=== PATIENT | female | born 1950 | race Caucasian/White ===

== ENCOUNTER 2019-12-09 16:13 | Inpatient (IN) ==
[2019-12-09] MEDS ORDERED: ALBUTEROL/IPRATROPIUM 3 ML NEB RESP TX STA (16:44)
[2019-12-09] MEDS ORDERED: methylPREDNISolone SOD SUC 125 MG/2 ML VIAL IV STA (16:44)
[2019-12-09] MEDS ORDERED: MAGNESIUM SULF RIDER 2 GM in PREMIX 1 EACH IV STA (16:46)
[2019-12-09] MEDS ORDERED: LORazepam 2 MG/1 ML VIAL IV STA (17:11)
[2019-12-09 17:21] LABS: Basophils # 0.1 10*3/uL (0.0-0.2); Basophils % 0.8 % (0.0-0.8); Eosinophils % 0.1 % (0.00-10.9); Hematocrit 25.3 VOL% (35.7-47.0); Hemoglobin 6.6 GM/DL (12.0-16.0); Immature Granulocytes % 0.6 %; Immature Granulocytes Absolute 0.06 #; Lymphocytes # 1.1 10*3/uL (1.4-4.0); Lymphocytes % 11.8 % (21.3-54.2); Mean Corpuscular HGB Conc 26.1 GM/DL (32-36); Mean Corpuscular Volume 70.5 FL (87-102); Mean Platelet Volume 10.4 FL (9.6-12.0); Monocytes % 6.9 % (1.7-12.7); NRBC # 0.02 10*3/uL; Neutrophils % 79.8 % (38.7-73.9); Platelet Count 450 T/CUMM (130-400); Red Blood Count 3.59 MC/CUMM (3.8-5.5); Red Cell Distribution Width 19.5 % (9.3-17.3); White Blood Count 9.5 T/CUMM (4-12)
[2019-12-09 17:24] LABS: Albumin 3.6 G/DL (3.4-5.0); Bilirubin,Total 0.9 MG/DL (0.2-1.0); Calcium 9.2 MG/DL (8.5-10.1); Osmolality,Calculated 270.2 MOS/KG (273-304); Total Protein 8.5 G/DL (6.4-8.3)
[2019-12-09 17:25] LABS: Troponin I 0.325 NG/ML (0.00-0.045)
[2019-12-09 17:36] LABS: ABG Base Excess -4.1 MMOL/L (-2.5-2.5); ABG HCO3 20.9 MMOL/L (20-26); ABG Oxygen Saturation 98.3 % (95-100); ABG PCO2 48.9 MM HG (35-48); ABG PH 7.272 (7.35-7.45); ABG TCO2 21.7 MMOL/L (23-27)
[2019-12-09 17:40] LABS: INR 1.2; PT Patient Result 12.9 SECS (9.6-12.2); Partial Thromboplastin Time 23.3 SECS (20.8-36.0)
[2019-12-09] MEDS ORDERED: FUROSEMIDE 100 MG/10 ML VIAL IV STA (17:41)
[2019-12-09] MEDS ORDERED: cefTRIAXone 1,000 MG in SODIUM CHLORIDE 0.9% 100 ML IV STA (17:41)
[2019-12-09] MEDS ORDERED: FUROSEMIDE 20 MG/2 ML VIAL ONE (17:46)
[2019-12-09] MEDS ORDERED: SUCCINYLCHOLINE 200 MG/10 ML VIAL ONE (17:59)
[2019-12-09] MEDS ORDERED: ETOMIDATE 20 MG/10 ML VIAL IV ONE (18:12)
[2019-12-09] MEDS ORDERED: AZITHROMYCIN INJ 500 MG in SODIUM CHLORIDE 0.9% 250 ML IV STA (18:13)
[2019-12-09] MEDS ORDERED: ALBUTEROL 2.5 MG/3 ML NEB RESP TX PRN (18:15)
[2019-12-09] MEDS ORDERED: FAMOTIDINE 20 MG/2 ML VIAL IV SCH (18:30)
[2019-12-09 18:39] LABS: ABG Base Excess -4.1 MMOL/L (-2.5-2.5); ABG HCO3 20.3 MMOL/L (20-26); ABG Oxygen Saturation 24.5 % (95-100); ABG PCO2 63.2 MM HG (35-48); ABG TCO2 23.9 MMOL/L (23-27)
[2019-12-09 18:47] LABS: ABG PH 7.192 (7.35-7.45)
[2019-12-09 18:48] LABS: ABG PO2 25.3 MM HG (80-95)
[2019-12-09 19:55] LABS: Anisocytosis 4+; Hypochromasia 4+; Microcytosis 3+; Poikilocytosis 1+
[2019-12-09 20:09] LABS: Troponin I 0.381 NG/ML (0.00-0.045)
[2019-12-09] MEDS: fentaNYL INJ 1,250 MCG in SODIUM CHLORIDE 0.9% 225 ML IV PRN (20:10)
[2019-12-09 20:32] LABS: ABG Base Excess -2.8 MMOL/L (-2.5-2.5); ABG HCO3 22.1 MMOL/L (20-26); ABG Oxygen Saturation 95.1 % (95-100); ABG PCO2 38.6 MM HG (35-48); ABG PH 7.368 (7.35-7.45); ABG PO2 79.8 MM HG (80-95); ABG TCO2 21.4 MMOL/L (23-27); Allen Test Positive; Pt O2 Delivery Device Ventilator
[2019-12-09] MEDS ORDERED: DOPamine 800 MG/250 ML PREMIX IV PRN (21:08)
[2019-12-09] MEDS: methylPREDNISolone SOD SUC 125 MG/2 ML VIAL IV SCH (23:11)
[2019-12-10] MEDS: NOREPINEPHRINE 8 MG in SODIUM CHLORIDE 0.9% 242 ML IV PRN (00:22)
[2019-12-10] MEDS: methylPREDNISolone SOD SUC 125 MG/2 ML VIAL IV SCH ×2 (00:55→09:23)
[2019-12-10 03:37] LABS: ABG Base Excess -2.1 MMOL/L (-2.5-2.5); ABG HCO3 22.7 MMOL/L (20-26); ABG Oxygen Saturation 98.9 % (95-100); ABG PCO2 29.3 MM HG (35-48); ABG PH 7.462 (7.35-7.45); ABG TCO2 19.3 MMOL/L (23-27); Allen Test Positive; Pt O2 Delivery Device Ventilator
[2019-12-10 06:20] LABS: Basophils % 0.1 % (0.0-0.8); Hematocrit 32.6 VOL% (35.7-47.0); Immature Granulocytes % 0.5 %; Immature Granulocytes Absolute 0.05 #; Lymphocytes # 0.5 10*3/uL (1.4-4.0); Lymphocytes % 5.2 % (21.3-54.2); Mean Corpuscular HGB Conc 30.1 GM/DL (32-36); Mean Corpuscular Volume 72.3 FL (87-102); Mean Platelet Volume 10.5 FL (9.6-12.0); Monocytes % 1.5 % (1.7-12.7); NRBC # 0.08 10*3/uL; Neutrophils % 92.7 % (38.7-73.9); Platelet Count 407 T/CUMM (130-400); Red Cell Distribution Width 20.8 % (9.3-17.3); White Blood Count 9.4 T/CUMM (4-12)
[2019-12-10 06:33] LABS: Red Blood Count 4.51 MC/CUMM (3.8-5.5)
[2019-12-10 06:34] LABS: Hemoglobin 9.8 GM/DL (12.0-16.0)
[2019-12-10 06:40] LABS: Alanine Aminotransferase 13 U/L (13-56); Alkaline Phosphatase 135 U/L (45-117); Aspartate Amino Transferase 22 U/L (0-37); Blood Urea Nitrogen 15 MG/DL (7-18); Estimated Glom Filtration Rate 74 ML/MIN; Glucose 184 MG/DL (74-106); Osmolality,Calculated 278.8 MOS/KG (273-304); Total Protein 7.3 G/DL (6.4-8.3)
[2019-12-10 06:42] LABS: Troponin I 0.391 NG/ML (0.00-0.045)
[2019-12-10] MEDS: LEVOFLOXACIN INJ 750 MG in PREMIX 1 EACH IV SCH (07:22)
[2019-12-10] MEDS: FUROSEMIDE 20 MG/2 ML VIAL IV PRN ×2 (07:22→21:51)
[2019-12-10 07:47] LABS: Hypochromasia 2+; Lymphocytes 4 % (20-55); Metamyelocytes 1 %; Nucleated Red Blood Cells 1 (0-5); Segmented Neutrophils 94 % (50-85); Total Cells Counted 100
[2019-12-10 07:48] LABS: Microcytosis 2+
[2019-12-10] MEDS: fentaNYL INJ 1,250 MCG in SODIUM CHLORIDE 0.9% 225 ML IV PRN ×2 (08:20→20:10)
[2019-12-10] MEDS: FERROUS SULFATE 300 MG/5 ML UDCUP PO SCH ×3 (09:23→21:51)
[2019-12-10 10:44] LABS: % Iron Saturation 23.8 % (18-50); Ferritin 13.1 ng/ml (8-252)
[2019-12-10] MEDS ORDERED: BICILLIN LA 1,200,000 UNIT/2 ML SYRINGE IM ONE (13:00)
[2019-12-10 14:04] LABS: Apearance,Urine CLEAR (Clear); Bilirubin,Urine Negative (Negative); Blood, Urine Small mg/dL (Negative); Glucose,Urine (UA) Negative (Negative); Hyaline Casts,Urine 4 /LPF (0-3); Ketones,Urine Negative (Negative); Nitrite,Urine Negative (Negative); Protein,Urine Negative; RBC,Urine 27 /HPF (0-4); Squamous Epithelial Cell,Urine Occasional /HPF (0-10); Urine Color Yellow (Yellow); Urine Specific Gravity 1.016 (1.001-1.035); Urine Urobilinogen < 2.0 EU/DL (0.2-1.0); WBC,Urine 15 /HPF (0-6)
[2019-12-10] MEDS ORDERED: SODIUM CHLORIDE 0.9% 1,000 ML IV ONE (16:00)
[2019-12-10 17:02] LABS: Calcium 7.5 MG/DL (8.5-10.1); Osmolality,Calculated 282.5 MOS/KG (273-304)
[2019-12-10] MEDS: SODIUM CHLORIDE 0.9% 1,000 ML IV SCH (17:40)
[2019-12-11] MEDS: SODIUM CHLORIDE 0.9% 1,000 ML IV SCH (03:40)
[2019-12-11 04:01] LABS: ABG Base Excess -3.6 MMOL/L (-2.5-2.5); ABG HCO3 21.3 MMOL/L (20-26); ABG Oxygen Saturation 95.7 % (95-100); ABG PCO2 46.1 MM HG (35-48); ABG PH 7.302 (7.35-7.45); ABG PO2 81.7 MM HG (80-95)
[2019-12-11 05:20] LABS: Albumin 2.3 G/DL (3.4-5.0); Calcium 6.1 MG/DL (8.5-10.1); Osmolality,Calculated 277.5 MOS/KG (273-304); Thyroid Stimulating Hormone 0.808 uIU/ml (0.358-3.74); Total Protein 6.7 G/DL (6.4-8.3)
[2019-12-11 05:33] LABS: Basophils % 0.1 % (0.0-0.8); Eosinophils % 0.1 % (0.00-10.9); Hematocrit 32.3 VOL% (35.7-47.0); Hemoglobin 9.6 GM/DL (12.0-16.0); Immature Granulocytes % 0.9 %; Immature Granulocytes Absolute 0.16 #; Lymphocytes # 1.3 10*3/uL (1.4-4.0); Lymphocytes % 7.4 % (21.3-54.2); Mean Corpuscular HGB Conc 29.7 GM/DL (32-36); Mean Corpuscular Volume 75.6 FL (87-102); Mean Platelet Volume 10.8 FL (9.6-12.0); Monocytes % 11.8 % (1.7-12.7); NRBC # 0.16 10*3/uL; Neutrophils % 79.7 % (38.7-73.9); Platelet Count 373 T/CUMM (130-400); Red Blood Count 4.27 MC/CUMM (3.8-5.5); Red Cell Distribution Width 20.9 % (9.3-17.3); White Blood Count 17.4 T/CUMM (4-12)
[2019-12-11 05:44] LABS: Hypochromasia 1+; Microcytosis Slight; Platelet Estimate Adequate
[2019-12-11] MEDS: LEVOTHYROXINE 50 MCG TABLET PO SCH (06:34)
[2019-12-11] MEDS: LEVOFLOXACIN INJ 750 MG in PREMIX 1 EACH IV SCH (06:34)
[2019-12-11] MEDS ORDERED: MAGNESIUM SULF RIDER 4 GM in PREMIX 1 EACH IV PRN (07:30)
[2019-12-11] MEDS: FUROSEMIDE 40 MG/4 ML VIAL IV SCH ×2 (08:31→15:42)
[2019-12-11] MEDS: VANCOMYCIN INJ 750 MG in SODIUM CHLORIDE 0.9% 250 ML IV SCH ×2 (08:32→20:42)
[2019-12-11] MEDS: FERROUS SULFATE 300 MG/5 ML UDCUP PO SCH ×3 (08:32→20:43)
[2019-12-11] MEDS: MAGNESIUM SULF RIDER 2 GM in PREMIX 1 EACH IV PRN (08:33)
[2019-12-11] MEDS: fentaNYL INJ 1,250 MCG in SODIUM CHLORIDE 0.9% 225 ML IV PRN ×2 (09:09→21:34)
[2019-12-11] MEDS: NOREPINEPHRINE 8 MG in SODIUM CHLORIDE 0.9% 242 ML IV PRN (22:31)
[2019-12-12 04:27] LABS: ABG HCO3 26.1 MMOL/L (20-26); ABG Oxygen Saturation 97.7 % (95-100); ABG PCO2 37.4 MM HG (35-48); ABG PH 7.448 (7.35-7.45); ABG PO2 88.3 MM HG (80-95); ABG TCO2 23.6 MMOL/L (23-27); Allen Test Positive; Pt O2 Delivery Device Ventilator
[2019-12-12 05:21] LABS: Calcium 7.2 MG/DL (8.5-10.1); Osmolality,Calculated 285.8 MOS/KG (273-304)
[2019-12-12] MEDS: POTASSIUM CHLORIDE RIDER 10 MEQ in PREMIX 1 EACH IV PRN ×6 (05:42→18:26)
[2019-12-12] MEDS: LEVOTHYROXINE 50 MCG TABLET PO SCH (05:47)
[2019-12-12] MEDS: LEVOFLOXACIN INJ 750 MG in PREMIX 1 EACH IV SCH (06:26)
[2019-12-12] MEDS: FUROSEMIDE 40 MG/4 ML VIAL IV SCH ×2 (07:39→15:46)
[2019-12-12] MEDS: VANCOMYCIN INJ 750 MG in SODIUM CHLORIDE 0.9% 250 ML IV SCH ×2 (07:39→20:25)
[2019-12-12] MEDS: FERROUS SULFATE 300 MG/5 ML UDCUP PO SCH ×3 (09:21→20:25)
[2019-12-12] MEDS: fentaNYL INJ 1,250 MCG in SODIUM CHLORIDE 0.9% 225 ML IV PRN (10:39)
[2019-12-13] MEDS: fentaNYL INJ 1,250 MCG in SODIUM CHLORIDE 0.9% 225 ML IV PRN ×2 (02:29→20:38)
[2019-12-13 03:57] LABS: Allen Test Positive; Pt O2 Delivery Device Ventilator
[2019-12-13 04:00] LABS: ABG Base Excess 5.2 MMOL/L (-2.5-2.5); ABG Oxygen Saturation 92.2 % (95-100); ABG PCO2 44.7 MM HG (35-48); ABG PH 7.435 (7.35-7.45); ABG PO2 62.7 MM HG (80-95); ABG TCO2 27.4 MMOL/L (23-27)
[2019-12-13 06:05] LABS: Prealbumin 11.8 MG/DL (20-40)
[2019-12-13 06:08] LABS: Calcium 7.2 MG/DL (8.5-10.1); Osmolality,Calculated 271.2 MOS/KG (273-304)
[2019-12-13] MEDS: LEVOFLOXACIN INJ 750 MG in PREMIX 1 EACH IV SCH (06:27)
[2019-12-13] MEDS: LEVOTHYROXINE 50 MCG TABLET PO SCH (06:28)
[2019-12-13 06:40] LABS: Basophils % 0.2 % (0.0-0.8); Eosinophils # 0.1 10*3/uL (0.0-0.87); Eosinophils % 0.6 % (0.00-10.9); Hematocrit 35.6 VOL% (35.7-47.0); Immature Granulocytes % 0.6 %; Lymphocytes % 18.4 % (21.3-54.2); Mean Corpuscular HGB Conc 28.4 GM/DL (32-36); Mean Corpuscular Volume 76.6 FL (87-102); Mean Platelet Volume 10.8 FL (9.6-12.0); Monocytes % 7.9 % (1.7-12.7); Neutrophils % 72.3 % (38.7-73.9); Platelet Count 215 T/CUMM (130-400); Red Blood Count 4.65 MC/CUMM (3.8-5.5); Red Cell Distribution Width 23.8 % (9.3-17.3); White Blood Count 16.3 T/CUMM (4-12)
[2019-12-13 06:42] LABS: Hemoglobin 10.1 GM/DL (12.0-16.0)
[2019-12-13 07:00] LABS: Hypochromasia 1+; Microcytosis Slight; Platelet Estimate Adequate
[2019-12-13] MEDS: FUROSEMIDE 40 MG/4 ML VIAL IV SCH ×2 (08:30→15:30)
[2019-12-13] MEDS: POTASSIUM CHLORIDE RIDER 10 MEQ in PREMIX 1 EACH IV PRN (08:30)
[2019-12-13] MEDS: FERROUS SULFATE 300 MG/5 ML UDCUP PO SCH ×3 (08:55→20:40)
[2019-12-13] MEDS: VANCOMYCIN INJ 750 MG in SODIUM CHLORIDE 0.9% 250 ML IV SCH ×2 (10:20→20:39)
[2019-12-13] MEDS: NOREPINEPHRINE 8 MG in SODIUM CHLORIDE 0.9% 242 ML IV PRN (10:31)
[2019-12-13] MEDS: dilTIAZem Drip 125 MG/125 ML PREMIX IV SCH (18:00)
[2019-12-13] MEDS ORDERED: DILTIAZEM 50 MG/10 ML VIAL IV ONE (18:00)
[2019-12-13] MEDS ORDERED: DIGOXIN 0.5 MG/2 ML AMP ONE (18:04)
[2019-12-13] MEDS ORDERED: DILTIAZEM 25 MG/5 ML VIAL IV ONE (18:05)
[2019-12-13] MEDS: DIGOXIN 0.5 MG/2 ML AMP IV SCH ×2 (19:06→23:30)
[2019-12-14 03:03] LABS: Basophils % 0.2 % (0.0-0.8); Eosinophils # 0.2 10*3/uL (0.0-0.87); Eosinophils % 0.9 % (0.00-10.9); Hematocrit 37.6 VOL% (35.7-47.0); Hemoglobin 10.9 GM/DL (12.0-16.0); Immature Granulocytes % 0.6 %; Immature Granulocytes Absolute 0.11 #; Lymphocytes # 3.3 10*3/uL (1.4-4.0); Lymphocytes % 17.5 % (21.3-54.2); Mean Platelet Volume 10.8 FL (9.6-12.0); Monocytes % 9.2 % (1.7-12.7); Neutrophils % 71.6 % (38.7-73.9); Platelet Count 205 T/CUMM (130-400); Red Blood Count 5.01 MC/CUMM (3.8-5.5); Red Cell Distribution Width 24.6 % (9.3-17.3); White Blood Count 18.8 T/CUMM (4-12)
[2019-12-14 03:08] LABS: Albumin 2.4 G/DL (3.4-5.0); Bilirubin,Total 1.2 MG/DL (0.2-1.0); Calcium 8.5 MG/DL (8.5-10.1); Osmolality,Calculated 277.7 MOS/KG (273-304); Total Protein 6.5 G/DL (6.4-8.3)
[2019-12-14 03:09] LABS: Hypochromasia 1+; Platelet Estimate Normal; Polychromasia Few
[2019-12-14] MEDS: DIGOXIN 0.5 MG/2 ML AMP IV SCH (05:53)
[2019-12-14] MEDS: LEVOTHYROXINE 50 MCG TABLET PO SCH (06:24)
[2019-12-14] MEDS: POTASSIUM CHLORIDE RIDER 10 MEQ in PREMIX 1 EACH IV PRN ×2 (06:24→07:25)
[2019-12-14] MEDS: FUROSEMIDE 40 MG/4 ML VIAL IV SCH ×2 (08:31→16:50)
[2019-12-14] MEDS: FERROUS SULFATE 300 MG/5 ML UDCUP PO SCH ×3 (08:31→21:22)
[2019-12-14] MEDS: ENOXAPARIN 60 MG/0.6 ML SYRINGE SUBCUT SCH ×2 (08:32→21:23)
[2019-12-14] MEDS: VANCOMYCIN INJ 750 MG in SODIUM CHLORIDE 0.9% 250 ML IV SCH ×2 (08:33→21:23)
[2019-12-14] MEDS: fentaNYL INJ 1,250 MCG in SODIUM CHLORIDE 0.9% 225 ML IV PRN (15:01)
[2019-12-14] MEDS: dilTIAZem Drip 125 MG/125 ML PREMIX IV SCH (18:45)
[2019-12-15 04:09] LABS: ABG HCO3 31.7 MMOL/L (20-26); ABG Oxygen Saturation 93.6 % (95-100); ABG PCO2 49.5 MM HG (35-48); ABG PH 7.438 (7.35-7.45); ABG PO2 68.3 MM HG (80-95); ABG TCO2 30.5 MMOL/L (23-27); Allen Test Positive; Pt O2 Delivery Device Ventilator
[2019-12-15] MEDS ORDERED: FUROSEMIDE 100 MG/10 ML VIAL IV ONE (05:23)
[2019-12-15] MEDS: LEVOTHYROXINE 50 MCG TABLET PO SCH (06:15)
[2019-12-15] MEDS: VANCOMYCIN INJ 750 MG in SODIUM CHLORIDE 0.9% 250 ML IV SCH ×2 (08:46→20:26)
[2019-12-15] MEDS: FUROSEMIDE 40 MG/4 ML VIAL IV SCH ×2 (08:46→16:12)
[2019-12-15] MEDS: ENOXAPARIN 60 MG/0.6 ML SYRINGE SUBCUT SCH ×2 (08:47→20:27)
[2019-12-15] MEDS: FERROUS SULFATE 300 MG/5 ML UDCUP PO SCH ×3 (08:47→20:27)
[2019-12-15] MEDS: DILTIAZEM 60 MG TABLET PO SCH ×3 (08:53→22:05)
[2019-12-15] MEDS: NOREPINEPHRINE 8 MG in SODIUM CHLORIDE 0.9% 242 ML IV PRN (14:27)
[2019-12-15] MEDS: fentaNYL INJ 1,250 MCG in SODIUM CHLORIDE 0.9% 225 ML IV PRN (14:28)
[2019-12-15] MEDS: dilTIAZem Drip 125 MG/125 ML PREMIX IV SCH (18:46)
[2019-12-16] MEDS: NOREPINEPHRINE 8 MG in SODIUM CHLORIDE 0.9% 242 ML IV PRN ×3 (02:00→18:04)
[2019-12-16 03:10] LABS: Calcium 9.5 MG/DL (8.5-10.1)
[2019-12-16] MEDS: MAGNESIUM SULF RIDER 2 GM in PREMIX 1 EACH IV PRN ×2 (03:27→16:42)
[2019-12-16] MEDS: POTASSIUM CHLORIDE RIDER 10 MEQ in PREMIX 1 EACH IV PRN ×7 (03:36→19:10)
[2019-12-16 04:43] LABS: ABG Base Excess 10.7 MMOL/L (-2.5-2.5); ABG HCO3 37.4 MMOL/L (20-26); ABG Oxygen Saturation 95.9 % (95-100); ABG PCO2 61.8 MM HG (35-48); ABG PO2 85.8 MM HG (80-95); ABG TCO2 39.3 MMOL/L (23-27); Allen Test Positive; Pt O2 Delivery Device Ventilator
[2019-12-16] MEDS: LEVOTHYROXINE 50 MCG TABLET PO SCH (07:05)
[2019-12-16] MEDS: FUROSEMIDE 40 MG/4 ML VIAL IV SCH ×2 (08:38→16:42)
[2019-12-16] MEDS: FERROUS SULFATE 300 MG/5 ML UDCUP PO SCH ×3 (08:39→20:29)
[2019-12-16] MEDS: ENOXAPARIN 60 MG/0.6 ML SYRINGE SUBCUT SCH ×2 (08:40→20:29)
[2019-12-16] MEDS: DILTIAZEM 60 MG TABLET PO SCH ×3 (08:41→21:30)
[2019-12-16] MEDS ORDERED: LACTULOSE 20 GM/30 ML UDCUP PO ONE (08:58)
[2019-12-16] MEDS: VANCOMYCIN INJ 750 MG in SODIUM CHLORIDE 0.9% 250 ML IV SCH (10:03)
[2019-12-16] MEDS ORDERED: NOREPINEPHRINE 4 MG/4 ML VIAL IV ONE (10:10)
[2019-12-16] MEDS: fentaNYL INJ 1,250 MCG in SODIUM CHLORIDE 0.9% 225 ML IV PRN (14:05)
[2019-12-16] MEDS: dilTIAZem Drip 125 MG/125 ML PREMIX IV SCH (18:33)
[2019-12-16] MEDS: VANCOMYCIN INJ 1,000 MG in SODIUM CHLORIDE 0.9% 250 ML IV SCH (21:23)
[2019-12-17] MEDS: NOREPINEPHRINE 8 MG in SODIUM CHLORIDE 0.9% 242 ML IV PRN ×5 (00:35→21:48)
[2019-12-17 04:21] LABS: ABG Base Excess 10.5 MMOL/L (-2.5-2.5); ABG HCO3 34.2 MMOL/L (20-26); ABG PCO2 52.8 MM HG (35-48); ABG PH 7.447 (7.35-7.45); ABG PO2 78.2 MM HG (80-95); ABG TCO2 32.7 MMOL/L (23-27); Allen Test Positive; Pt O2 Delivery Device Ventilator
[2019-12-17 06:09] LABS: Calcium 9.4 MG/DL (8.5-10.1); Osmolality,Calculated 272.2 MOS/KG (273-304)
[2019-12-17 06:59] LABS: Basophils # 0.1 10*3/uL (0.0-0.2); Basophils % 0.6 % (0.0-0.8); Eosinophils # 0.3 10*3/uL (0.0-0.87); Eosinophils % 1.4 % (0.00-10.9); Hematocrit 39.2 VOL% (35.7-47.0); Hemoglobin 10.9 GM/DL (12.0-16.0); Immature Granulocytes Absolute 0.18 #; Lymphocytes # 2.5 10*3/uL (1.4-4.0); Lymphocytes % 13.4 % (21.3-54.2); Mean Corpuscular HGB Conc 27.8 GM/DL (32-36); Mean Corpuscular Volume 78.1 FL (87-102); Monocytes % 12.1 % (1.7-12.7); Neutrophils % 71.5 % (38.7-73.9); Platelet Count 275 T/CUMM (130-400); Red Blood Count 5.02 MC/CUMM (3.8-5.5); Red Cell Distribution Width 26.4 % (9.3-17.3); White Blood Count 18.7 T/CUMM (4-12)
[2019-12-17] MEDS: LEVOTHYROXINE 50 MCG TABLET PO SCH (07:47)
[2019-12-17 09:08] LABS: Hypochromasia 2+; Microcytosis 2+; Ovalocytes Slight; Polychromasia Slight
[2019-12-17 09:09] LABS: Platelet Estimate Normal
[2019-12-17] MEDS: FUROSEMIDE 40 MG/4 ML VIAL IV SCH ×2 (10:15→16:24)
[2019-12-17] MEDS: DILTIAZEM 60 MG TABLET PO SCH ×3 (10:16→21:29)
[2019-12-17] MEDS: LACTULOSE 20 GM/30 ML UDCUP PO SCH (10:17)
[2019-12-17] MEDS: ENOXAPARIN 60 MG/0.6 ML SYRINGE SUBCUT SCH ×2 (10:17→22:04)
[2019-12-17] MEDS: FERROUS SULFATE 300 MG/5 ML UDCUP PO SCH ×3 (10:17→22:04)
[2019-12-17] MEDS: VANCOMYCIN INJ 1,000 MG in SODIUM CHLORIDE 0.9% 250 ML IV SCH ×2 (10:18→22:04)
[2019-12-17] MEDS: POTASSIUM CHLORIDE RIDER 10 MEQ in PREMIX 1 EACH IV PRN ×2 (10:19→11:48)
[2019-12-17] MEDS ORDERED: NOREPINEPHRINE 4 MG/4 ML VIAL IV ONE (17:55)
[2019-12-17] MEDS: dilTIAZem Drip 125 MG/125 ML PREMIX IV SCH (18:20)
[2019-12-17] MEDS ORDERED: DIGOXIN 0.5 MG/2 ML AMP IV ONE (18:44)
[2019-12-17] MEDS ORDERED: PHENYLEPHRINE DRIP 40 MG/250 ML PREMIX IV ONE (19:32)
[2019-12-17] MEDS: PHENYLEPHRINE DRIP 40 MG/250 ML PREMIX IV PRN ×2 (19:35→23:26)
[2019-12-17] MEDS ORDERED: SODIUM CHLORIDE 0.9% 250 ML IV ONE (19:42)
[2019-12-17] MEDS ORDERED: AMIODARONE 150 MG/3 ML VIAL ONE (20:21)
[2019-12-17] MEDS ORDERED: AMIODARONE 450 MG/9 ML VIAL IV ONE (20:21)
[2019-12-17] MEDS ORDERED: AMIODARONE INJ 150 MG in DEXTROSE 5% 100 ML IV ONE (20:27)
[2019-12-17] MEDS ORDERED: AMIODARONE INJ 450 MG in DEXTROSE 5% 241 ML IV SCH (20:30)
[2019-12-17 20:33] LABS: Blood Urea Nitrogen 12 MG/DL (7-18); Calcium 9.3 MG/DL (8.5-10.1); Estimated Glom Filtration Rate 79 ML/MIN; Glucose 233 MG/DL (74-106)
[2019-12-17 20:36] LABS: Troponin I 0.141 NG/ML (0.00-0.045)
[2019-12-17] MEDS: fentaNYL INJ 1,250 MCG in SODIUM CHLORIDE 0.9% 225 ML IV PRN (20:55)
[2019-12-17] MEDS: AMIODARONE INJ 450 MG in DEXTROSE 5% 241 ML IV SCH (21:22)
[2019-12-18] MEDS: MAGNESIUM SULF RIDER 2 GM in PREMIX 1 EACH IV PRN (01:07)
[2019-12-18] MEDS: dilTIAZem Drip 125 MG/125 ML PREMIX IV SCH ×2 (01:10→18:55)
[2019-12-18] MEDS ORDERED: AMIODARONE INJ 450 MG in DEXTROSE 5% 241 ML IV SCH (02:30)
[2019-12-18] MEDS: NOREPINEPHRINE 8 MG in SODIUM CHLORIDE 0.9% 242 ML IV PRN ×4 (03:20→20:46)
[2019-12-18] MEDS: PHENYLEPHRINE DRIP 40 MG/250 ML PREMIX IV PRN ×6 (03:21→21:41)
[2019-12-18 04:38] LABS: ABG Base Excess 7.5 MMOL/L (-2.5-2.5); ABG HCO3 31.2 MMOL/L (20-26); ABG Oxygen Saturation 94.2 % (95-100); ABG PCO2 49.1 MM HG (35-48); ABG PH 7.435 (7.35-7.45); ABG PO2 71.2 MM HG (80-95); ABG TCO2 29.5 MMOL/L (23-27); Allen Test Positive; Pt O2 Delivery Device Ventilator
[2019-12-18] MEDS: LEVOTHYROXINE 50 MCG TABLET PO SCH (06:19)
[2019-12-18 06:21] LABS: Osmolality,Calculated 281.8 MOS/KG (273-304)
[2019-12-18] MEDS ORDERED: DOCUSATE SODIUM 100 MG/10 ML UDCUP PO PRN (08:02)
[2019-12-18] MEDS ORDERED: BISACODYL 10 MG SUPP RECTAL PRN (08:02)
[2019-12-18] MEDS ORDERED: FUROSEMIDE 40 MG/4 ML VIAL IV ONE (08:12)
[2019-12-18 09:06] LABS: Basophils # 0.1 10*3/uL (0.0-0.2); Basophils % 0.7 % (0.0-0.8)
[2019-12-18 09:27] LABS: Eosinophils # 0.1 10*3/uL (0.0-0.87); Eosinophils % 0.4 % (0.00-10.9); Hematocrit 41.7 VOL% (35.7-47.0); Immature Granulocytes % 1.1 %; Immature Granulocytes Absolute 0.22 #; Lymphocytes # 2.5 10*3/uL (1.4-4.0); Lymphocytes % 13.1 % (21.3-54.2); Mean Corpuscular HGB Conc 28.5 GM/DL (32-36); Mean Corpuscular Volume 77.8 FL (87-102); Mean Platelet Volume 11.3 FL (9.6-12.0); Monocytes % 12.6 % (1.7-12.7); NRBC # 0.02 10*3/uL; Neutrophils % 72.1 % (38.7-73.9); Platelet Count 389 T/CUMM (130-400); Red Blood Count 5.36 MC/CUMM (3.8-5.5); Red Cell Distribution Width 27.5 % (9.3-17.3); White Blood Count 19.3 T/CUMM (4-12)
[2019-12-18 09:28] LABS: Hemoglobin 11.9 GM/DL (12.0-16.0)
[2019-12-18] MEDS: FUROSEMIDE 40 MG/4 ML VIAL IV SCH ×2 (09:29→16:01)
[2019-12-18] MEDS: FERROUS SULFATE 300 MG/5 ML UDCUP PO SCH ×3 (09:36→22:20)
[2019-12-18] MEDS: ASPIRIN CHEW 81 MG TABLET PO SCH (09:36)
[2019-12-18] MEDS: ENOXAPARIN 60 MG/0.6 ML SYRINGE SUBCUT SCH ×2 (09:36→22:20)
[2019-12-18] MEDS: LACTULOSE 20 GM/30 ML UDCUP PO SCH (09:36)
[2019-12-18 09:41] LABS: Platelet Estimate Adequate
[2019-12-18 09:42] LABS: Microcytosis Slight
[2019-12-18] MEDS ORDERED: GLUCAGON 1 MG VIAL IM PRN (09:55)
[2019-12-18] MEDS: VANCOMYCIN INJ 1,000 MG in SODIUM CHLORIDE 0.9% 250 ML IV SCH ×2 (11:20→22:20)
[2019-12-18] MEDS: AMIODARONE 200 MG TABLET PO SCH ×2 (12:27→22:20)
[2019-12-18] MEDS: INSULIN REGULAR 100 UNIT/ML SUBCUT SCH ×2 (12:27→17:47)
[2019-12-18] MEDS: POTASSIUM CHLORIDE RIDER 10 MEQ in PREMIX 1 EACH IV PRN ×2 (16:20→17:47)
[2019-12-18] MEDS: fentaNYL INJ 1,250 MCG in SODIUM CHLORIDE 0.9% 225 ML IV PRN (19:01)
[2019-12-19] MEDS: INSULIN REGULAR 100 UNIT/ML SUBCUT SCH ×4 (00:03→18:27)
[2019-12-19] MEDS: PHENYLEPHRINE DRIP 40 MG/250 ML PREMIX IV PRN ×5 (02:32→22:52)
[2019-12-19 03:01] LABS: ABG Base Excess 5.8 MMOL/L (-2.5-2.5); ABG HCO3 29.6 MMOL/L (20-26); ABG PCO2 47.2 MM HG (35-48); ABG PH 7.427 (7.35-7.45); ABG PO2 89.4 MM HG (80-95); ABG TCO2 27.7 MMOL/L (23-27); Allen Test Positive; Pt O2 Delivery Device Ventilator
[2019-12-19] MEDS: NOREPINEPHRINE 8 MG in SODIUM CHLORIDE 0.9% 242 ML IV PRN ×3 (03:46→18:49)
[2019-12-19] MEDS: LEVOTHYROXINE 50 MCG TABLET PO SCH (05:59)
[2019-12-19 06:29] LABS: Calcium 7.6 MG/DL (8.5-10.1); Osmolality,Calculated 282.4 MOS/KG (273-304)
[2019-12-19 06:39] LABS: Basophils # 0.1 10*3/uL (0.0-0.2); Basophils % 0.7 % (0.0-0.8); Eosinophils # 0.2 10*3/uL (0.0-0.87); Eosinophils % 0.9 % (0.00-10.9); Hematocrit 31.3 VOL% (35.7-47.0); Hemoglobin 8.8 GM/DL (12.0-16.0); Immature Granulocytes % 1.1 %; Immature Granulocytes Absolute 0.18 #; Lymphocytes # 2.1 10*3/uL (1.4-4.0); Lymphocytes % 12.7 % (21.3-54.2); Mean Corpuscular HGB Conc 28.1 GM/DL (32-36); Mean Corpuscular Volume 79.6 FL (87-102); Mean Platelet Volume 11.3 FL (9.6-12.0); Monocytes % 11.5 % (1.7-12.7); Neutrophils % 73.1 % (38.7-73.9); Platelet Count 336 T/CUMM (130-400); Red Blood Count 3.93 MC/CUMM (3.8-5.5); Red Cell Distribution Width 26.7 % (9.3-17.3); White Blood Count 16.3 T/CUMM (4-12)
[2019-12-19 06:41] LABS: Hypochromasia 2+
[2019-12-19 06:42] LABS: Microcytosis 2+; Platelet Estimate Normal; Polychromasia Slight
[2019-12-19] MEDS: ENOXAPARIN 60 MG/0.6 ML SYRINGE SUBCUT SCH ×2 (08:37→20:58)
[2019-12-19] MEDS: MAGNESIUM SULF RIDER 2 GM in PREMIX 1 EACH IV PRN (08:37)
[2019-12-19] MEDS: FERROUS SULFATE 300 MG/5 ML UDCUP PO SCH ×3 (08:37→20:58)
[2019-12-19] MEDS: FUROSEMIDE 40 MG/4 ML VIAL IV SCH ×2 (08:37→15:41)
[2019-12-19] MEDS: AMIODARONE 200 MG TABLET PO SCH ×2 (08:38→20:58)
[2019-12-19] MEDS: methylPREDNISolone SOD SUC 40 MG/1 ML VIAL IV SCH ×2 (08:38→15:41)
[2019-12-19] MEDS: LACTULOSE 20 GM/30 ML UDCUP PO SCH (08:38)
[2019-12-19] MEDS: ASPIRIN CHEW 81 MG TABLET PO SCH (08:39)
[2019-12-19] MEDS: VANCOMYCIN INJ 1,000 MG in SODIUM CHLORIDE 0.9% 250 ML IV SCH ×2 (10:43→21:01)
[2019-12-19] MEDS: fentaNYL INJ 1,250 MCG in SODIUM CHLORIDE 0.9% 225 ML IV PRN (15:41)
[2019-12-19] MEDS: dilTIAZem Drip 125 MG/125 ML PREMIX IV SCH (18:28)
[2019-12-20] MEDS: methylPREDNISolone SOD SUC 40 MG/1 ML VIAL IV SCH ×3 (00:38→15:55)
[2019-12-20] MEDS: INSULIN REGULAR 100 UNIT/ML SUBCUT SCH ×4 (00:38→18:36)
[2019-12-20] MEDS: NOREPINEPHRINE 8 MG in SODIUM CHLORIDE 0.9% 242 ML IV PRN ×4 (01:30→17:58)
[2019-12-20] MEDS: ACETAMINOPHEN 325 MG TABLET PO PRN ×3 (02:37→20:05)
[2019-12-20] MEDS: PHENYLEPHRINE DRIP 40 MG/250 ML PREMIX IV PRN ×5 (02:39→20:15)
[2019-12-20 03:25] LABS: ABG Base Excess 5.7 MMOL/L (-2.5-2.5); ABG HCO3 29.5 MMOL/L (20-26); ABG PCO2 47.9 MM HG (35-48); ABG PH 7.422 (7.35-7.45); ABG PO2 64.9 MM HG (80-95); ABG TCO2 27.8 MMOL/L (23-27); Allen Test Positive; Pt O2 Delivery Device Ventilator
[2019-12-20] MEDS: LEVOTHYROXINE 50 MCG TABLET PO SCH (05:40)
[2019-12-20] MEDS: fentaNYL INJ 1,250 MCG in SODIUM CHLORIDE 0.9% 225 ML IV PRN ×2 (05:56→17:52)
[2019-12-20 08:03] LABS: Basophils # 0.1 10*3/uL (0.0-0.2); Basophils % 0.3 % (0.0-0.8); Hematocrit 39.5 VOL% (35.7-47.0); Immature Granulocytes % 1.1 %; Immature Granulocytes Absolute 0.24 #; Lymphocytes # 0.9 10*3/uL (1.4-4.0); Lymphocytes % 3.7 % (21.3-54.2); Mean Corpuscular HGB Conc 28.1 GM/DL (32-36); Mean Corpuscular Volume 80.3 FL (87-102); Monocytes % 4.7 % (1.7-12.7); Neutrophils % 90.2 % (38.7-73.9); Red Cell Distribution Width 28.2 % (9.3-17.3)
[2019-12-20 08:04] LABS: Hemoglobin 11.1 GM/DL (12.0-16.0); Platelet Count 720 T/CUMM (130-400); Red Blood Count 4.92 MC/CUMM (3.8-5.5); White Blood Count 22.8 T/CUMM (4-12)
[2019-12-20 08:10] LABS: Band Neutrophils 1 % (0-10); Eosinophils 2 % (0-10); Hypochromasia 1+; Lymphocytes 3 % (20-55); Microcytosis 1+; Platelet Estimate Increased; Segmented Neutrophils 90 % (50-85); Total Cells Counted 100
[2019-12-20 08:12] LABS: Calcium 8.2 MG/DL (8.5-10.1); Osmolality,Calculated 292.1 MOS/KG (273-304)
[2019-12-20] MEDS: FUROSEMIDE 40 MG/4 ML VIAL IV SCH ×2 (09:20→15:47)
[2019-12-20] MEDS: FERROUS SULFATE 300 MG/5 ML UDCUP PO SCH ×3 (09:21→20:56)
[2019-12-20] MEDS: AMIODARONE 200 MG TABLET PO SCH ×2 (09:21→20:57)
[2019-12-20] MEDS: LACTULOSE 20 GM/30 ML UDCUP PO SCH (09:21)
[2019-12-20] MEDS: ENOXAPARIN 60 MG/0.6 ML SYRINGE SUBCUT SCH ×2 (09:22→20:57)
[2019-12-20] MEDS: ASPIRIN CHEW 81 MG TABLET PO SCH (09:22)
[2019-12-20] MEDS: VANCOMYCIN INJ 1,000 MG in SODIUM CHLORIDE 0.9% 250 ML IV SCH ×2 (10:46→22:12)
[2019-12-20] MEDS: dilTIAZem Drip 125 MG/125 ML PREMIX IV SCH (17:49)
[2019-12-20] MEDS: IBUPROFEN 600 MG TABLET PO PRN (20:56)
[2019-12-21] MEDS: INSULIN REGULAR 100 UNIT/ML SUBCUT SCH ×4 (00:05→18:29)
[2019-12-21] MEDS: PHENYLEPHRINE DRIP 40 MG/250 ML PREMIX IV PRN ×5 (00:06→16:53)
[2019-12-21] MEDS: methylPREDNISolone SOD SUC 40 MG/1 ML VIAL IV SCH ×4 (00:06→23:15)
[2019-12-21] MEDS: NOREPINEPHRINE 8 MG in SODIUM CHLORIDE 0.9% 242 ML IV PRN ×2 (00:40→08:58)
[2019-12-21] MEDS: ACETAMINOPHEN 325 MG TABLET PO PRN ×2 (02:29→20:26)
[2019-12-21 04:10] LABS: ABG Base Excess 5.4 MMOL/L (-2.5-2.5); ABG HCO3 29.1 MMOL/L (20-26); ABG Oxygen Saturation 88.2 % (95-100); ABG PCO2 42.2 MM HG (35-48); ABG PH 7.457 (7.35-7.45); ABG PO2 55.3 MM HG (80-95); ABG TCO2 26.7 MMOL/L (23-27); Allen Test Positive; Pt O2 Delivery Device Ventilator
[2019-12-21] MEDS: LEVOTHYROXINE 50 MCG TABLET PO SCH (06:47)
[2019-12-21 08:16] LABS: Calcium 7.5 MG/DL (8.5-10.1); Osmolality,Calculated 297.1 MOS/KG (273-304)
[2019-12-21 08:17] LABS: Basophils # 0.1 10*3/uL (0.0-0.2); Basophils % 0.2 % (0.0-0.8); Immature Granulocytes % 0.9 %; Immature Granulocytes Absolute 0.23 #; Lymphocytes # 1.3 10*3/uL (1.4-4.0); Lymphocytes % 5.1 % (21.3-54.2); Mean Corpuscular HGB Conc 28.4 GM/DL (32-36); Mean Corpuscular Volume 80.5 FL (87-102); Mean Platelet Volume 11.2 FL (9.6-12.0); Monocytes % 9.2 % (1.7-12.7); Neutrophils % 84.6 % (38.7-73.9); Platelet Count 664 T/CUMM (130-400); Red Blood Count 4.72 MC/CUMM (3.8-5.5); Red Cell Distribution Width 29.5 % (9.3-17.3); White Blood Count 25.2 T/CUMM (4-12)
[2019-12-21 08:18] LABS: Hemoglobin 10.8 GM/DL (12.0-16.0)
[2019-12-21 08:20] LABS: Prealbumin 9.5 MG/DL (20-40)
[2019-12-21] MEDS: LACTULOSE 20 GM/30 ML UDCUP PO SCH (08:36)
[2019-12-21] MEDS: FERROUS SULFATE 300 MG/5 ML UDCUP PO SCH ×3 (08:36→20:26)
[2019-12-21] MEDS: AMIODARONE 200 MG TABLET PO SCH (08:37)
[2019-12-21] MEDS: FUROSEMIDE 40 MG/4 ML VIAL IV SCH ×2 (08:37→16:52)
[2019-12-21] MEDS: ASPIRIN CHEW 81 MG TABLET PO SCH (08:38)
[2019-12-21] MEDS: ENOXAPARIN 60 MG/0.6 ML SYRINGE SUBCUT SCH ×2 (08:38→20:25)
[2019-12-21 08:47] LABS: Hypochromasia 1+; Lymphocytes 5 % (20-55); Platelet Estimate Adequate; Segmented Neutrophils 92 % (50-85); Total Cells Counted 100
[2019-12-21 08:48] LABS: Microcytosis Slight
[2019-12-21] MEDS: PIPERACILLIN/TAZOBACTAM 3,375 MG in SODIUM CHLORIDE 0.9% 100 ML IV SCH ×2 (08:58→16:52)
[2019-12-21] MEDS: VANCOMYCIN INJ 1,000 MG in SODIUM CHLORIDE 0.9% 250 ML IV SCH ×2 (08:59→23:15)
[2019-12-21] MEDS: fentaNYL INJ 1,250 MCG in SODIUM CHLORIDE 0.9% 225 ML IV PRN (12:23)
[2019-12-21] MEDS: dilTIAZem Drip 125 MG/125 ML PREMIX IV SCH (17:31)
[2019-12-21] MEDS: POTASSIUM CHLORIDE RIDER 10 MEQ in PREMIX 1 EACH IV PRN (18:05)
[2019-12-21] MEDS: IBUPROFEN 600 MG TABLET PO PRN (18:39)
[2019-12-21] MEDS: POTASSIUM CHLORIDE 20 MEQ/15 ML UDCUP PER TUBE PRN ×2 (20:26→23:14)
[2019-12-22] MEDS: INSULIN REGULAR 100 UNIT/ML SUBCUT SCH ×4 (01:21→19:14)
[2019-12-22] MEDS: methylPREDNISolone SOD SUC 40 MG/1 ML VIAL IV SCH ×3 (01:22→15:36)
[2019-12-22] MEDS: PIPERACILLIN/TAZOBACTAM 3,375 MG in SODIUM CHLORIDE 0.9% 100 ML IV SCH ×4 (01:31→16:59)
[2019-12-22] MEDS: PHENYLEPHRINE DRIP 40 MG/250 ML PREMIX IV PRN ×5 (02:19→22:14)
[2019-12-22 05:03] LABS: Basophils # 0.1 10*3/uL (0.0-0.2); Basophils % 0.2 % (0.0-0.8); Immature Granulocytes % 1.3 %; Immature Granulocytes Absolute 0.36 #; Lymphocytes # 0.8 10*3/uL (1.4-4.0); Lymphocytes % 3.1 % (21.3-54.2); Mean Corpuscular HGB Conc 28.3 GM/DL (32-36); Mean Corpuscular Volume 83.1 FL (87-102); Mean Platelet Volume 11.8 FL (9.6-12.0); Monocytes % 5.9 % (1.7-12.7); NRBC # 0.02 10*3/uL; Neutrophils % 89.5 % (38.7-73.9); Platelet Count 620 T/CUMM (130-400); Red Blood Count 4.25 MC/CUMM (3.8-5.5); Red Cell Distribution Width 30.1 % (9.3-17.3); White Blood Count 27.2 T/CUMM (4-12)
[2019-12-22 05:06] LABS: Hematocrit 35.3 VOL% (35.7-47.0)
[2019-12-22 05:13] LABS: Hypochromasia 1+; Lymphocytes 3 % (20-55); Microcytosis 1+; Platelet Estimate Increased; Segmented Neutrophils 94 % (50-85); Total Cells Counted 100
[2019-12-22 05:14] LABS: Polychromasia Few
[2019-12-22 05:18] LABS: Calcium 7.4 MG/DL (8.5-10.1); Osmolality,Calculated 308.6 MOS/KG (273-304)
[2019-12-22] MEDS: fentaNYL INJ 1,250 MCG in SODIUM CHLORIDE 0.9% 225 ML IV PRN ×2 (05:43→23:53)
[2019-12-22] MEDS: POTASSIUM CHLORIDE 20 MEQ/15 ML UDCUP PER TUBE PRN ×2 (05:51→10:54)
[2019-12-22] MEDS: LEVOTHYROXINE 50 MCG TABLET PO SCH (06:33)
[2019-12-22] MEDS ORDERED: POTASSIUM CHLORIDE 20 MEQ TABLET PO PRN (06:54)
[2019-12-22] MEDS: LACTULOSE 20 GM/30 ML UDCUP PO SCH (08:30)
[2019-12-22] MEDS: FERROUS SULFATE 300 MG/5 ML UDCUP PO SCH ×3 (08:30→21:39)
[2019-12-22] MEDS: ASPIRIN CHEW 81 MG TABLET PO SCH (08:31)
[2019-12-22] MEDS: FUROSEMIDE 40 MG/4 ML VIAL IV SCH ×2 (08:31→15:00)
[2019-12-22] MEDS: AMIODARONE 200 MG TABLET PO SCH (08:31)
[2019-12-22] MEDS: ENOXAPARIN 60 MG/0.6 ML SYRINGE SUBCUT SCH ×2 (08:35→21:39)
[2019-12-22] MEDS: ACETAMINOPHEN 325 MG TABLET PO PRN ×3 (09:12→21:39)
[2019-12-22] MEDS: VANCOMYCIN INJ 1,000 MG in SODIUM CHLORIDE 0.9% 250 ML IV SCH ×2 (09:35→22:14)
[2019-12-22] MEDS: NOREPINEPHRINE 8 MG in SODIUM CHLORIDE 0.9% 242 ML IV PRN ×2 (13:31)
[2019-12-22] MEDS: dilTIAZem Drip 125 MG/125 ML PREMIX IV SCH (18:53)
[2019-12-23] MEDS: methylPREDNISolone SOD SUC 40 MG/1 ML VIAL IV SCH ×3 (00:14→16:37)
[2019-12-23] MEDS: INSULIN REGULAR 100 UNIT/ML SUBCUT SCH ×5 (00:16→23:51)
[2019-12-23] MEDS: PHENYLEPHRINE DRIP 40 MG/250 ML PREMIX IV PRN ×8 (01:06→23:50)
[2019-12-23] MEDS: PIPERACILLIN/TAZOBACTAM 3,375 MG in SODIUM CHLORIDE 0.9% 100 ML IV SCH ×3 (02:35→19:05)
[2019-12-23] MEDS: ACETAMINOPHEN 325 MG TABLET PO PRN ×4 (02:35→20:30)
[2019-12-23] MEDS: LEVOTHYROXINE 50 MCG TABLET PO SCH (06:01)
[2019-12-23 06:21] LABS: Calcium 7.7 MG/DL (8.5-10.1)
[2019-12-23 06:33] LABS: Basophils # 0.1 10*3/uL (0.0-0.2); Basophils % 0.2 % (0.0-0.8); Hematocrit 32.8 VOL% (35.7-47.0); Hemoglobin 9.2 GM/DL (12.0-16.0); Immature Granulocytes % 2.2 %; Immature Granulocytes Absolute 0.71 #; Lymphocytes # 1.1 10*3/uL (1.4-4.0); Lymphocytes % 3.3 % (21.3-54.2); Mean Corpuscular Volume 82.8 FL (87-102); Mean Platelet Volume 11.9 FL (9.6-12.0); Monocytes % 6.1 % (1.7-12.7); NRBC # 0.55 10*3/uL; Neutrophils % 88.2 % (38.7-73.9); Platelet Count 713 T/CUMM (130-400); Red Blood Count 3.96 MC/CUMM (3.8-5.5); Red Cell Distribution Width 30.5 % (9.3-17.3); White Blood Count 32.1 T/CUMM (4-12)
[2019-12-23 06:42] LABS: Band Neutrophils 4 % (0-10); Hypochromasia 1+; Nucleated Red Blood Cells 1 (0-5); Platelet Estimate Increased; Segmented Neutrophils 91 % (50-85); Total Cells Counted 100
[2019-12-23 06:43] LABS: Microcytosis 1+
[2019-12-23] MEDS: NOREPINEPHRINE 8 MG in SODIUM CHLORIDE 0.9% 242 ML IV PRN ×2 (07:01→20:50)
[2019-12-23] MEDS: POTASSIUM CHLORIDE 20 MEQ/15 ML UDCUP PER TUBE PRN (07:01)
[2019-12-23] MEDS: FUROSEMIDE 40 MG/4 ML VIAL IV SCH ×2 (08:42→17:49)
[2019-12-23] MEDS: FERROUS SULFATE 300 MG/5 ML UDCUP PO SCH ×3 (08:42→20:30)
[2019-12-23] MEDS: AMIODARONE 200 MG TABLET PO SCH (08:43)
[2019-12-23] MEDS: VANCOMYCIN INJ 1,000 MG in SODIUM CHLORIDE 0.9% 250 ML IV SCH ×2 (09:15→23:31)
[2019-12-23] MEDS ORDERED: VASOPRESSIN 100 UNITS in SODIUM CHLORIDE 0.9% 95 ML IV PRN (10:34)
[2019-12-23] MEDS: ENOXAPARIN 60 MG/0.6 ML SYRINGE SUBCUT SCH ×2 (12:56→20:54)
[2019-12-23] MEDS ORDERED: LACTULOSE 20 GM/30 ML UDCUP PO PRN (13:20)
[2019-12-23] MEDS ORDERED: SODIUM CHLORIDE 0.9% 500 ML IV ONE (13:22)
[2019-12-23] MEDS ORDERED: DIGOXIN 0.5 MG/2 ML AMP IV ONE ×2 (13:22→20:00)
[2019-12-23] MEDS: LACTULOSE 20 GM/30 ML UDCUP PO SCH (13:22)
[2019-12-23] MEDS: ASPIRIN CHEW 81 MG TABLET PO SCH (13:37)
[2019-12-23 15:20] LABS: Albumin 2.4 G/DL (3.4-5.0); Bilirubin,Direct 0.7 MG/DL (0.0-0.20); Bilirubin,Indirect 0.3 MG/DL (0.0-1.0); Total Protein 6.3 G/DL (6.4-8.3)
[2019-12-23] MEDS ORDERED: AMIODARONE INJ 150 MG in DEXTROSE 5% 100 ML IV ONE (16:10)
[2019-12-23] MEDS: fentaNYL INJ 1,250 MCG in SODIUM CHLORIDE 0.9% 225 ML IV PRN (16:17)
[2019-12-23] MEDS: SODIUM CHLORIDE 0.9% 1,000 ML IV SCH (16:20)
[2019-12-23] MEDS ORDERED: AMIODARONE INJ 450 MG in DEXTROSE 5% 241 ML IV SCH (16:30)
[2019-12-23] MEDS: dilTIAZem Drip 125 MG/125 ML PREMIX IV SCH (18:09)
[2019-12-23] MEDS: IBUPROFEN 600 MG TABLET PO PRN (18:16)
[2019-12-24] MEDS: methylPREDNISolone SOD SUC 40 MG/1 ML VIAL IV SCH ×2 (00:01→16:27)
[2019-12-24] MEDS: AMIODARONE INJ 450 MG in DEXTROSE 5% 241 ML IV SCH ×2 (00:58→18:45)
[2019-12-24] MEDS: SODIUM CHLORIDE 0.9% 1,000 ML IV SCH ×4 (01:00→22:09)
[2019-12-24] MEDS: PIPERACILLIN/TAZOBACTAM 3,375 MG in SODIUM CHLORIDE 0.9% 100 ML IV SCH ×3 (02:41→18:30)
[2019-12-24] MEDS: PHENYLEPHRINE DRIP 40 MG/250 ML PREMIX IV PRN ×5 (03:16→22:06)
[2019-12-24 03:41] LABS: ABG Base Excess 5.9 MMOL/L (-2.5-2.5); ABG HCO3 29.7 MMOL/L (20-26); ABG Oxygen Saturation 93.4 % (95-100); ABG PCO2 46.1 MM HG (35-48); ABG PH 7.433 (7.35-7.45); ABG PO2 68.4 MM HG (80-95); ABG TCO2 28.5 MMOL/L (23-27); Allen Test Positive; Pt O2 Delivery Device Ventilator
[2019-12-24 04:41] LABS: Bilirubin,Total 1.9 MG/DL (0.2-1.0); Total Protein 5.6 G/DL (6.4-8.3)
[2019-12-24 05:11] VITALS: BP 109/80
[2019-12-24] MEDS: INSULIN REGULAR 100 UNIT/ML SUBCUT SCH ×3 (05:59→18:30)
[2019-12-24] MEDS: LEVOTHYROXINE 50 MCG TABLET PO SCH (05:59)
[2019-12-24] MEDS: POTASSIUM CHLORIDE 20 MEQ/15 ML UDCUP PER TUBE PRN ×2 (06:00→20:25)
[2019-12-24] MEDS ORDERED: MICAFUNGIN 100 MG in SODIUM CHLORIDE 0.9% 100 ML IV SCH (09:00)
[2019-12-24] MEDS ORDERED: DIGOXIN 0.5 MG/2 ML AMP IV SCH (09:00)
[2019-12-24] MEDS: FUROSEMIDE 40 MG/4 ML VIAL IV SCH ×2 (09:15→16:41)
[2019-12-24] MEDS: IBUPROFEN 600 MG TABLET PO PRN (09:15)
[2019-12-24] MEDS: ASPIRIN CHEW 81 MG TABLET PO SCH (09:15)
[2019-12-24] MEDS: FERROUS SULFATE 300 MG/5 ML UDCUP PO SCH ×3 (09:15→20:25)
[2019-12-24 10:25] LABS: Basophils # 0.1 10*3/uL (0.0-0.2); Basophils % 0.2 % (0.0-0.8); Hematocrit 29.1 VOL% (35.7-47.0); Hemoglobin 8.2 GM/DL (12.0-16.0); Immature Granulocytes Absolute 0.59 #; Lymphocytes % 3.5 % (21.3-54.2); Mean Corpuscular HGB Conc 28.2 GM/DL (32-36); Mean Corpuscular Volume 84.1 FL (87-102); Mean Platelet Volume 11.7 FL (9.6-12.0); NRBC # 1.36 10*3/uL; Neutrophils % 90.3 % (38.7-73.9); Platelet Count 615 T/CUMM (130-400); Red Blood Count 3.46 MC/CUMM (3.8-5.5); Red Cell Distribution Width 31.1 % (9.3-17.3)
[2019-12-24 10:27] LABS: Hypochromasia 1+; Lymphocytes 2 % (20-55); Nucleated Red Blood Cells 12 (0-5); Platelet Estimate Adequate; Segmented Neutrophils 96 % (50-85); Total Cells Counted 100
[2019-12-24 10:28] LABS: Microcytosis 1+; Polychromasia Slight
[2019-12-24] MEDS: AMIODARONE 200 MG TABLET PO SCH (10:43)
[2019-12-24] MEDS: ENOXAPARIN 60 MG/0.6 ML SYRINGE SUBCUT SCH ×2 (11:04→20:18)
[2019-12-24] MEDS: VANCOMYCIN INJ 1,000 MG in SODIUM CHLORIDE 0.9% 250 ML IV SCH ×2 (11:26→22:08)
[2019-12-24] MEDS: NOREPINEPHRINE 8 MG in SODIUM CHLORIDE 0.9% 242 ML IV PRN ×2 (13:31→22:20)
[2019-12-24] MEDS ORDERED: PHENYLEPHRINE INJ 160 MG in SODIUM CHLORIDE 0.9% 234 ML IV PRN (15:46)
[2019-12-24] MEDS ORDERED: NOREPINEPHRINE 16 MG in SODIUM CHLORIDE 0.9% 234 ML IV PRN (15:46)
[2019-12-24] MEDS: ACETAMINOPHEN 325 MG TABLET PO PRN (16:39)
[2019-12-24] MEDS: fentaNYL INJ 1,250 MCG in SODIUM CHLORIDE 0.9% 225 ML IV PRN (17:30)
[2019-12-24] MEDS: dilTIAZem Drip 125 MG/125 ML PREMIX IV SCH (18:45)
[2019-12-24] MEDS ORDERED: AMIODARONE 150 MG/3 ML VIAL ONE (18:45)
[2019-12-24] MEDS ORDERED: AMIODARONE INJ 450 MG in DEXTROSE 5% 241 ML IV SCH (19:32)
[2019-12-24 19:38] LABS: Basophils # 0.1 10*3/uL (0.0-0.2); Basophils % 0.2 % (0.0-0.8); Hematocrit 31.5 VOL% (35.7-47.0); Hemoglobin 8.4 GM/DL (12.0-16.0); Immature Granulocytes % 3.9 %; Immature Granulocytes Absolute 1.41 #; Lymphocytes # 1.5 10*3/uL (1.4-4.0); Lymphocytes % 4.1 % (21.3-54.2); Mean Corpuscular HGB Conc 26.7 GM/DL (32-36); Mean Corpuscular Volume 89.2 FL (87-102); Mean Platelet Volume 11.8 FL (9.6-12.0); Monocytes % 4.4 % (1.7-12.7); NRBC # 2.17 10*3/uL; Neutrophils % 87.4 % (38.7-73.9); Platelet Count 753 T/CUMM (130-400); Red Blood Count 3.53 MC/CUMM (3.8-5.5); Red Cell Distribution Width 31.7 % (9.3-17.3); White Blood Count 36.1 T/CUMM (4-12)
[2019-12-24] MEDS ORDERED: LIDOCAINE 100 MG/5 ML SYRINGE IV ONE ×3 (19:40→20:30)
[2019-12-24] MEDS: LIDOCAINE DRIP 2,000 MG/250 ML PREMIX IV SCH (19:46)
[2019-12-24 19:52] LABS: Calcium 6.8 MG/DL (8.5-10.1); Osmolality,Calculated 316.9 MOS/KG (273-304)
[2019-12-24 20:06] LABS: Lymphocytes 8 % (20-55); Nucleated Red Blood Cells 6 (0-5); Segmented Neutrophils 91 % (50-85); Total Cells Counted 100
[2019-12-24 20:07] LABS: Anisocytosis 1+; Elliptocytes Few; Hypochromasia 1+; Platelet Estimate Increased; Polychromasia 1+
[2019-12-25] MEDS: PHENYLEPHRINE DRIP 40 MG/250 ML PREMIX IV PRN ×2 (00:02→07:40)
[2019-12-25] MEDS: INSULIN REGULAR 100 UNIT/ML SUBCUT SCH ×2 (00:02→06:43)
[2019-12-25] MEDS: POTASSIUM CHLORIDE 20 MEQ/15 ML UDCUP PER TUBE PRN ×2 (00:18→03:53)
[2019-12-25] MEDS: SODIUM CHLORIDE 0.9% 1,000 ML IV SCH (02:16)
[2019-12-25 03:26] LABS: ABG Base Excess 2.2 MMOL/L (-2.5-2.5); ABG HCO3 26.4 MMOL/L (20-26); ABG Oxygen Saturation 98.9 % (95-100); ABG PCO2 41.1 MM HG (35-48); ABG PH 7.422 (7.35-7.45); ABG TCO2 24.9 MMOL/L (23-27); Allen Test Positive; Pt O2 Delivery Device Ventilator
[2019-12-25] MEDS: AMIODARONE INJ 450 MG in DEXTROSE 5% 241 ML IV SCH (03:51)
[2019-12-25] MEDS: fentaNYL INJ 1,250 MCG in SODIUM CHLORIDE 0.9% 225 ML IV PRN (03:57)
[2019-12-25] MEDS: LIDOCAINE DRIP 2,000 MG/250 ML PREMIX IV SCH (04:32)
[2019-12-25 06:22] LABS: Basophils # 0.1 10*3/uL (0.0-0.2); Basophils % 0.2 % (0.0-0.8); Hematocrit 28.6 VOL% (35.7-47.0); Immature Granulocytes % 2.4 %; Mean Corpuscular HGB Conc 26.9 GM/DL (32-36); Mean Corpuscular Volume 89.1 FL (87-102); Mean Platelet Volume 11.9 FL (9.6-12.0); Monocytes % 5.3 % (1.7-12.7); NRBC # 2.35 10*3/uL; Neutrophils % 89.1 % (38.7-73.9); Red Blood Count 3.21 MC/CUMM (3.8-5.5); Red Cell Distribution Width 31.6 % (9.3-17.3); White Blood Count 32.7 T/CUMM (4-12)
[2019-12-25 06:24] LABS: Albumin 1.9 G/DL (3.4-5.0); Bilirubin,Total 2.4 MG/DL (0.2-1.0); Calcium 6.5 MG/DL (8.5-10.1); Osmolality,Calculated 317.7 MOS/KG (273-304); Total Protein 5.3 G/DL (6.4-8.3)
[2019-12-25 06:27] LABS: Hemoglobin 7.7 GM/DL (12.0-16.0); Platelet Count 569 T/CUMM (130-400)
[2019-12-25 06:31] LABS: Band Neutrophils 2 % (0-10); Hypochromasia 2+; Lymphocytes 1 % (20-55); Nucleated Red Blood Cells 7 (0-5); Platelet Estimate Adequate; Segmented Neutrophils 93 % (50-85); Total Cells Counted 100
[2019-12-25 06:32] LABS: Ovalocytes Slight; Polychromasia Slight
[2019-12-25] MEDS: LEVOTHYROXINE 50 MCG TABLET PO SCH (06:43)
[2019-12-25] MEDS: PIPERACILLIN/TAZOBACTAM 3,375 MG in SODIUM CHLORIDE 0.9% 100 ML IV SCH (06:44)
[2019-12-25] MEDS ORDERED: fentaNYL INJ 1,250 MCG in SODIUM CHLORIDE 0.9% 225 ML IV PRN (06:46)
[2019-12-25] MEDS ORDERED: LORazepam 2 MG/1 ML VIAL IV PRN (08:28)
[2019-12-25] MEDS ORDERED: MORPHINE 4 MG/1 ML VIAL IV PRN (08:28)
== END 2019-12-25 10:22 | disposition expired | DRG 207 ==
LOC: N.ED 16:13 → N.EDINP 18:15 → N.CC 18:37
PROVIDERS: ADMIT Family Medicine; ATTEND Family Medicine